=== PATIENT | male | born 1960 | race Caucasian/White ===

== ENCOUNTER 2017-02-17 20:47 | Emergency (ER) | payer MEDICARE, OTHER ==
[~2017-02-17] VITALS: Ht 177.8 cm; Wt 149.7 kg
[2017-02-17 20:47] VITALS: BP 133/72
[~2017-02-17 20:47] MED LIST changes: -ASPI81TA85 PO; -ATOR1TAB18 PO; -CLOP75TA2 PO; -HYDR-3716 PO; -IPRASOL4 INH; -LISI2.5T3 PO; -OMEP40CA2 PO; -VIAG100T PO
[2017-02-19] MEDS ORDERED: VIAG100T PO (10:26)
[2017-02-19] MEDS ORDERED: LISI2.5T3 PO (10:26)
[2017-02-19] MEDS ORDERED: HYDR-3716 PO (10:26)
[2017-02-19] MEDS ORDERED: ASPI81TA85 PO (10:26)
[2017-02-19] MEDS ORDERED: OMEP40CA2 PO (12:08)
[2017-02-19] MEDS ORDERED: CLOP75TA2 PO (12:08)
[2017-02-19] MEDS ORDERED: ATOR1TAB18 PO (12:08)
[2017-02-19] MEDS ORDERED: IPRASOL4 INH (12:09)
== END 2017-02-18 00:06 | disposition left against medical advice (07) ==
LOC: M ED 23:54
DX: R10.10 Upper abdominal pain, unspecified (principal); Z53.21 Procedure and treatment not carried out due to patient leaving prior to being seen by health care provider; K59.00 Constipation, unspecified

== ENCOUNTER → 2017-02-17 | Outpatient (CLI) | payer MEDICARE, OTHER ==
[~2017-02-17] MED LIST: /ATOR40TA; ASPI81TA85 PO; ATEN25TA; ATOR1TAB18 PO; CLOP75TA2 PO; ECOT325T5; HYDR-3716 PO; HYDROCODONE/ACETAMIN; IPRASOL4 INH; LISI2.5T3 PO; OMEP40CA2 PO; PLAV75TA2; PRIL20CA; VIAG100T PO; ZETI10TA
--- NOTE | 2017-02-17 09:31 | REP ---
ABDOMINAL SERIES: Supine and erect views of the abdomen demonstrate no evidence of free intraperitoneal air and no evidence for bowel obstruction. No dilated small bowel loops are seen. Phlebolith is seen in the left pelvis. There are degenerative changes of the spine. There are metallic clips in the right upper quadrant. An accompanying PA view of the chest demonstrates no acute infiltrate. Heart is normal in size and the mediastinal silhouette is unremarkable. IMPRESSION: Negative abdominal series. Signed by Codey Peralta MD 02/17/2017 07:52 P
== END ==
LOC: M ADAMS 08:37
PROVIDERS: ATTEND Physician Assistant
DX: R10.10 Upper abdominal pain, unspecified (principal); K59.00 Constipation, unspecified

== ENCOUNTER 2017-02-19 10:13 | Inpatient (IN) | payer MEDICARE, BC, OTHER ==
[~2017-02-19] VITALS: Ht 177.8 cm; Wt 158.8 kg
[~2017-02-19 10:13] MED LIST changes: +IPRATROPIUM 0.5MG/ALBUTEROL 2.5MG INH SOL UD 3ML (DUONEB)(J7620) NEB SCH
[2017-02-19] MEDS ORDERED: ASPI81TA85 PO (10:26)
[2017-02-19] MEDS ORDERED: HYDR-3716 PO (10:26)
[2017-02-19] MEDS ORDERED: LISI2.5T3 PO (10:26)
[2017-02-19] MEDS ORDERED: VIAG100T PO (10:26)
[2017-02-19] MEDS ORDERED: NS 1,000 ML IV ONE (11:15)
[2017-02-19] MEDS ORDERED: MORPHINE 4 MG/ML 1ML SYRINGE IV ONE ×2 (11:15→12:00)
[2017-02-19] MEDS ORDERED: ONDANSETRON 4MG/2ML VIAL (J2405) IV ONE (11:15)
[2017-02-19 11:35] LABS: BASO % 0.4 % (0.0-1.0); EOS # 0.2 K/mm3 (0.0-0.50); EOS % 2.7 % (0.0-3.0); LARGE UNSTAINED CELL # 0.2 K/mm3 (0.0-0.4); LARGE UNSTAINED CELL % 1.9 % (0.0-4.0); LYMPH # 1.5 K/mm3 (1.5-4.5); LYMPH % 17.6 % (24.0-44.0); MEAN CORPUSCULAR HEMOGLOBIN 30.2 pg (27.0-33.0); MEAN CORPUSCULAR HGB CONC 33.9 g/dl (32.0-36.5); MEAN CORPUSCULAR VOLUME 89.1 fl (80.0-96.0); MONO # 0.7 K/mm3 (0.0-0.8); MONO % 8.4 % (0.0-5.0); NEUTROPHILS # 5.7 K/mm3 (1.8-7.7); NEUTROPHILS % 68.9 % (36.0-66.0); PLATELET COUNT, AUTOMATED 268 k/mm3 (150-450); RED CELL DISTRIBUTION WIDTH 12.7 % (11.5-14.5); WHITE BLOOD COUNT 8.2 K/mm3 (4.0-10.0)
--- NOTE | 2017-02-19 11:40 | REP ---
Clinical: Lower chest and abdominal pain . Comparison: 11/02/2015 . Technique: PA and lateral. Findings: The mediastinum and cardiac silhouette are normal. The lung hamlin are clear and without acute consolidation, effusion, or pneumothorax. The skeletal structures are intact and normal. No free air below the diaphragm. Impression: 1. No acute cardiopulmonary process. Signed by Marcus Salmeron MD 02/19/2017 11:31 A
[2017-02-19 11:55] LABS: ALBUMIN 3.4 GM/DL (3.2-5.2); ALBUMIN/GLOBULIN RATIO 0.94 (1.00-1.93); ALKALINE PHOSPHATASE 79 U/L (45-117); ALT/SGPT 55 U/L (12-78); AMYLASE 75 U/L (25-115); ANION GAP 8 MEQ/L (8-16); AST/SGOT 27 U/L (15-37); BILIRUBIN,DIRECT 0.2 MG/DL (0.0-0.2); BILIRUBIN,TOTAL 0.6 MG/DL (0.2-1.0); BLOOD UREA NITROGEN 11 MG/DL (7-18); CALCIUM LEVEL 9.2 MG/DL (8.5-10.1); CARBON DIOXIDE LEVEL 27 MEQ/L (21-32); CHLORIDE LEVEL 103 MEQ/L (98-107); CREATININE FOR GFR 0.83 MG/DL (0.70-1.30); GLOMERULAR FILTRATION RATE > 60.0 (>56); GLUCOSE, FASTING 86 MG/DL (70-105); POTASSIUM SERUM 3.9 MEQ/L (3.5-5.1); SODIUM LEVEL 138 MEQ/L (136-145)
[2017-02-19 11:59] LABS: INR 1.08
[2017-02-19] MEDS ORDERED: CLOP75TA2 PO (12:08)
[2017-02-19] MEDS ORDERED: ATOR1TAB18 PO (12:08)
[2017-02-19] MEDS ORDERED: OMEP40CA2 PO (12:08)
[2017-02-19] MEDS ORDERED: IPRASOL4 INH (12:09)
[2017-02-19] MEDS ORDERED: NS 1,000 ML IV SCH (12:16)
[2017-02-19] MEDS ORDERED: ALBUTEROL SULFATE 2.5 MG/0.5 ML INH NEB SOLN NEB PRN (12:30)
[2017-02-19] MEDS ORDERED: MORPHINE 4 MG/ML 1ML SYRINGE IV PRN (12:30)
[2017-02-19] MEDS ORDERED: ONDANSETRON 4MG/2ML VIAL (J2405) IV PRN (12:30)
[2017-02-19] MEDS: PANTOPRAZOLE 40MG INJ (PROTONIX) (C9113) IV SCH (13:46)
--- NOTE | 2017-02-19 13:57 | HPE ---
DATE OF ADMISSION: 02/19/2017 PRIMARY CARE PROVIDER: Dr. Garcia. CHIEF COMPLAINT: Abdominal pain for 6 days and inability to tolerate anything by mouth. PAST MEDICAL HISTORY: 1. Coronary artery disease status post stents times two. 2. Hypertension. 3. Hyperlipidemia. 4. Obstructive sleep apnea (TRUDY) on CPAP. 5. Chronic back pain after fall injury. 6. Morbid obesity. 7. Gastroesophageal reflux disease. HISTORY OF PRESENT ILLNESS: This is a 56-year-old male who recently returned from [place] after being down there for 3 months, returned on February 04. He was in his usual state of health but after coming back here and then about 6 days ago, he developed upper abdominal pain. Initially he thought it was some gas or indigestion, tolerated the pain for 2 days at home and then went to Urgent Care. There it was thought that he was constipated and was given some stool softeners and bowel prep to make him go. After that, he has been having diarrhea and he had one episode of vomiting. He came to the emergency room 2 days ago, however, and waited in the registration area for 3-1/2 hours and then he could not sit anymore so then back home and then he went to see his primary care provider yesterday, had lab work done and was given a request for CT scan. He got CT scan done at [facility] this morning and then he was called by his primary care provider to come to the emergency room for abnormally elevated lipase level and abnormal CT scan. CT scan showed strict inflammation around the head of the pancreas and body and possible pancreatitis, and a few mildly enlarged pancreatic lymph nodes. There was no free fluid or free air or fluid collection in the abdomen. There was sigmoid diverticulosis without acute pancreatitis. So the patient was admitted to the hospitalist service for pancreatitis. Patient continues to complain of epigastric and right upper quadrant pain, continues to complain of diarrhea. Denies any nausea or vomiting. Denies any radiation of the pain. Denies any fever or chills. Denies any chest pain, shortness of breath, cough or phlegm. Patient says that he has hardly been able to tolerate a few sips of water for the past 3-4 days. Anything that he takes by mouth worsens the pain. PAST SURGICAL HISTORY: 1. Cholecystectomy. 2. Cardiac stents times two. 3. Back surgery times three consisting of laminectomies. 4. Right inguinal hernia repair times two. 5. Abdominal hernia repair. ALLERGIES: No known allergies. SOCIAL HISTORY: Patient drinks socially. Has never had any problems with alcohol abuse. His last drink was about 2 weeks ago. In [place], he usually drinks a little more than when he is up here. He would usually drink 2-3 drinks in the evening. Smokes about half a pack per day. No history of recreational drug abuse. HOME MEDICATIONS: - lisinopril 2.5 mg daily - aspirin 81 mg daily - clopidogrel 300 mg daily - atorvastatin 80 mg at bedtime - acetaminophen/hydrocodone 7.5/325 one tablet by mouth every 6 hours as needed pain - Viagra 100 mg by mouth as needed - omeprazole 40 mg daily - albuterol ipratropium one solution every 4 hours as needed shortness of breath FAMILY HISTORY: History of coronary artery disease in siblings. REVIEW OF SYSTEMS: All ten point review of systems are negative except for those mentioned in history of present illness. PHYSICAL EXAMINATION: Vital signs: Temperature 97.7, pulse 70, respiratory rate 18, blood pressure 100.56, pulse oximetry 96% on room air. General: Patient awake, alert, oriented times three. Lying down in bed in no acute distress. HEENT: Normocephalic, atraumatic. Moist mucous membranes. Anicteric eyes. Chest: Clear to auscultation. Cardiovascular: S1, S2, regular. No rub, murmur or gallop. Abdomen: Obese, soft, tender to palpation in epigastrium, right upper quadrant and right iliac fossa. Some rebound tenderness present. No guarding or rigidity. Bowel sounds hyperperistaltic. Extremities: No edema. LABORATORY DATA: WBC 8.2, hemoglobin 16, platelet 268. Sodium 138, potassium 3.9, chloride 103, bicarbonate 27, BUN 11, creatinine 0.8, glucose 86, lactic acid 1.3. Liver function tests are normal. Amylase 75, lipase 819. CT scan from outside facility shows diffuse fatty infiltration of liver status post cholecystectomy, strict inflammation around the pancreatic head and body with possibly pancreatitis, few mildly enlarged pancreatic lymph nodes are present. No free fluid, free air or fluid collection in the abdomen or pelvis. Sigmoid diverticulosis without acute diverticulitis. There is no evidence of biliary dilatation. No evidence of hydronephrosis or nephrolithiasis. No evidence of abdominal aortic aneurysm. No bowel wall thickening is seen. EKG shows normal sinus rhythm with rate of 78 and suggestion of old inferior wall myocardial infarction. ASSESSMENT AND PLAN: This is a 56-year-old male admitted for pancreatitis. PLAN: For pancreatitis, we will keep the patient on clear liquid diet, minimal oral medications. Will continue pain control with morphine, IV fluid with dextrose and normal saline. Hyperlipidemia, will hold atorvastatin at present. Hypertension, blood pressure is low normal. Patient probably dehydrated this time. I will hold lisinopril. Obstructive sleep apnea, will continue with CPAP. Coronary artery disease with history of stents, the last one more than 2 years old so will hold Plavix. Will only give aspirin. Deep venous thrombosis (DVT) prophylaxis has been ordered. Gastrointestinal (GI) prophylaxis, will continue with IV pantoprazole. Chronic back pain after back injury in 2002 followed by three back surgeries, will continue with morphine.
[2017-02-19] MEDS: D5W/0.9% SODIUM CHLORIDE 1,000 ML IV SCH (16:23)
[2017-02-19] MEDS: MORPHINE 4 MG/ML 1ML SYRINGE IV PRN ×3 (16:32→21:34)
[2017-02-19] MEDS: ASPIRIN 81 MG ENTERIC TAB PO SCH (21:24)
[2017-02-19] MEDS: ENOXAPARIN 40 MG/0.4 ML SYRINGE (J1650) SC SCH (21:32)
[2017-02-19 22:00] VITALS: BP 122/65
[2017-02-20] MEDS: MORPHINE 4 MG/ML 1ML SYRINGE IV PRN ×3 (03:20→20:02)
[2017-02-20] MEDS: D5W/0.9% SODIUM CHLORIDE 1,000 ML IV SCH ×4 (03:27→20:45)
[2017-02-20 06:00] VITALS: BP 103/55
[2017-02-20 06:49] LABS: BASO % 0.7 % (0.0-1.0); EOS # 0.3 K/mm3 (0.0-0.50); EOS % 5.7 % (0.0-3.0); LARGE UNSTAINED CELL # 0.1 K/mm3 (0.0-0.4); LARGE UNSTAINED CELL % 1.6 % (0.0-4.0); LYMPH # 1.3 K/mm3 (1.5-4.5); LYMPH % 22.3 % (24.0-44.0); MEAN CORPUSCULAR HEMOGLOBIN 29.5 pg (27.0-33.0); MEAN CORPUSCULAR VOLUME 89.3 fl (80.0-96.0); MONO # 0.5 K/mm3 (0.0-0.8); MONO % 8.4 % (0.0-5.0); NEUTROPHILS # 3.3 K/mm3 (1.8-7.7); NEUTROPHILS % 61.3 % (36.0-66.0); PLATELET COUNT, AUTOMATED 240 k/mm3 (150-450); WHITE BLOOD COUNT 5.4 K/mm3 (4.0-10.0)
[2017-02-20 07:08] LABS: ANION GAP 5 MEQ/L (8-16); BLOOD UREA NITROGEN 11 MG/DL (7-18); CARBON DIOXIDE LEVEL 27 MEQ/L (21-32); CHLORIDE LEVEL 107 MEQ/L (98-107); CREATININE FOR GFR 0.88 MG/DL (0.70-1.30); GLOMERULAR FILTRATION RATE > 60.0 (>56); GLUCOSE, FASTING 111 MG/DL (70-105); MAGNESIUM LEVEL 2.3 MG/DL (1.8-2.4); POTASSIUM SERUM 3.7 MEQ/L (3.5-5.1); SODIUM LEVEL 139 MEQ/L (136-145)
[2017-02-20] MEDS: PANTOPRAZOLE 40MG INJ (PROTONIX) (C9113) IV SCH (09:44)
--- NOTE | 2017-02-20 10:11 | ECGEPIP ---
Stationary ECG Study [facility] - ED Test Date: 2017-02-19 Pat Name: MIKE HEATH Department: Room: [place] [address] Gender: M Customs Inspector: JAYLON : 1960 Requested By: Sultana Wallace Order Number: [id number] Reading MD: Angie Rich Measurements Intervals [place] Rate: 78 P: 51 ME: 178 QRS: -21 QRSD: 78 T: 0 QT: 367 QTc: 420 Interpretive Statements SINUS RHYTHM INFERIOR MYOCARDIAL INFARCTION, PROBABLY OLD LOW VOLTAGE LIMB NSTTW ABNORMALITY SIMILAR 07/12/15 Electronically Signed On 02-20-2017 10:10:57 EDT by Angie Rich
[2017-02-20] MEDS ORDERED: MORPHINE 4 MG/ML 1ML SYRINGE IV PRN (12:30)
--- NOTE | 2017-02-20 13:55 | IPNPDOC ---
Text Note Date of Service The patient was seen on 02/20/17. NOTE Subjective: Pt denies CP/SOB/palpitations. Abd pain resolved. No Nausea/ vomiting. Tolerating clear diet. Objective: Vitals: (see below) General: No acute distress, laying comfortably in bed. HEENT: Moist mucous membranes. Neck: No JVD or lymphadenopathy Cardiac: RRR, No murmurs Pulm: Clear to auscultation b/l. No wheezing, rhonchi Abd: NT/ND + BS Ext: No edema or cyanosis Labs (see below) Images: CXR 02/19/17 Impression: 1. No acute cardiopulmonary process. Assessment/Plan 1. Acute pancreatitis - Mild- Inflammatory changes per H&P with no loculation. On IVF. Pain better controlled. Advance diet to full liquid. Abd u/s to r/o gallstones. LFTs wnl. Lipid panel to r/o elevated TG. 2. HTN - BP low normal. ACEi held for now. 3. HLD - on statin 4. TRUDY on CPAP 5. CAD s/p PCI - on ASA plavix, statin. 6. H/o chronic back pain s/p multiple back surgeries - stable. DVT prophy: Enoxaparin VS,Fishbone, I+O VS, Fishbone, I+O Laboratory Tests 02/20/17 06:30 Red Blood Count 4.57, Mean Corpuscular Volume 89.3, Mean Corpuscular Hemoglobin 29.5, Mean Corpuscular Hemoglobin Concent 33.0, Red Cell Distribution Width 13.0 , Neutrophils (%) (Auto) 61.3, Lymphocytes (%) (Auto) 22.3 L, Monocytes (%) ( Auto) 8.4 H, Eosinophils (%) (Auto) 5.7 H, Basophils (%) (Auto) 0.7, Neutrophils # (Auto) 3.3, Lymphocytes # (Auto) 1.3 L, Monocytes # (Auto) 0.5, Eosinophils # (Auto) 0.3, Basophils # (Auto) 0.0, Calcium Level 8.0 L Vital Signs Date Time Temp Pulse Resp B/P (MAP) Pulse Ox O2 Delivery O2 Flow Rate FiO2 02/20/17 09:54 16 02/20/17 09:00 Room Air 02/20/17 06:00 97.7 64 103/55 (62) 93 I&O- Last 24 Hours up to 6 AM 02/20/17 06:00 Intake Total 820 ml Output Total 0 ml Balance 820 ml GERMAN NOLAN MD February 20, 2017 13:55
[2017-02-20] MEDS: CLOPIDOGREL 75 MG TAB PO SCH (18:01)
[2017-02-20] MEDS: ENOXAPARIN 40 MG/0.4 ML SYRINGE (J1650) SC SCH (18:36)
[2017-02-20] MEDS: ASPIRIN 81 MG ENTERIC TAB PO SCH (20:01)
[2017-02-20] MEDS ORDERED: ATORVASTATIN 20 MG TAB PO SCH (21:00)
[2017-02-20 22:00] VITALS: BP 135/75
[2017-02-21] MEDS: D5W/0.9% SODIUM CHLORIDE 1,000 ML IV SCH ×2 (01:10→05:04)
[2017-02-21] MEDS: MORPHINE 4 MG/ML 1ML SYRINGE IV PRN (04:11)
[2017-02-21 06:00] VITALS: BP 120/59
[2017-02-21 06:53] LABS: BASO % 0.9 % (0.0-1.0); EOS # 0.3 K/mm3 (0.0-0.50); EOS % 5.4 % (0.0-3.0); LARGE UNSTAINED CELL # 0.1 K/mm3 (0.0-0.4); LARGE UNSTAINED CELL % 1.8 % (0.0-4.0); LYMPH # 1.5 K/mm3 (1.5-4.5); LYMPH % 32.2 % (24.0-44.0); MEAN CORPUSCULAR HEMOGLOBIN 29.6 pg (27.0-33.0); MEAN CORPUSCULAR HGB CONC 32.6 g/dl (32.0-36.5); MEAN CORPUSCULAR VOLUME 90.9 fl (80.0-96.0); MONO # 0.3 K/mm3 (0.0-0.8); MONO % 7.2 % (0.0-5.0); NEUTROPHILS # 2.5 K/mm3 (1.8-7.7); NEUTROPHILS % 52.5 % (36.0-66.0); PLATELET COUNT, AUTOMATED 229 k/mm3 (150-450); RED CELL DISTRIBUTION WIDTH 12.8 % (11.5-14.5); WHITE BLOOD COUNT 4.7 K/mm3 (4.0-10.0)
[2017-02-21 07:12] LABS: ANION GAP 4 MEQ/L (8-16); BLOOD UREA NITROGEN 6 MG/DL (7-18); CALCIUM LEVEL 8.3 MG/DL (8.5-10.1); CARBON DIOXIDE LEVEL 28 MEQ/L (21-32); CHLORIDE LEVEL 110 MEQ/L (98-107); CHOLESTEROL LEVEL 126 MG/DL (<200); GLOMERULAR FILTRATION RATE > 60.0 (>56); GLUCOSE, FASTING 113 MG/DL (70-105); POTASSIUM SERUM 3.7 MEQ/L (3.5-5.1); SODIUM LEVEL 142 MEQ/L (136-145); TRIGLYCERIDES LEVEL 99 MG/DL (<150)
--- NOTE | 2017-02-21 07:46 | REP ---
Clinical: Abdominal pain. Pancreatitis. Technique: Real time ivey scale ultrasound examination using curved array transducer. Findings: The patient is status post cholecystectomy. Evaluation is limited due to technical factors and body habitus. No obvious biliary ductal dilatation is appreciated and the common bile duct measures 6.9 mm diameter. The liver demonstrates diffuse fatty infiltration without focal hepatic lesion identified. The pancreas is incompletely evaluated due to overlying bowel gas, but visualized portions appear normal. The right kidney is normal in reniform shape without hydronephrosis and measures 14.1 x 7.1 x 6.4 cm. No ascites. Impression: Fatty infiltration to the liver. Status post cholecystectomy. No obvious acute pathology by ultrasound otherwise noted. Signed by Marcus Salmeron MD 02/21/2017 07:38 A
[2017-02-21] MEDS ORDERED: PANTOPRAZOLE 40MG TAB (PROTONIX) PO SCH (09:00)
[2017-02-21] MEDS: CLOPIDOGREL 75 MG TAB PO SCH (09:12)
[2017-02-21] MEDS ORDERED: PERCOCET 5MG/325MG TAB PO PRN (09:30)
--- NOTE | 2017-02-21 14:36 | DS.PDOC ---
Discharge Summary General Date of Admission February 19, 2017 at 12:32 Attending Physician: GERMAN NOLAN MD Discharge Summary PROCEDURES PERFORMED DURING STAY: None. ADMITTING/DISCHARGE DIAGNOSES: 1. Acute Pancreatitis 2. Hypertension. 3. Hyperlipidemia. 4. Obstructive sleep apnea (TRUDY) on CPAP. 5. Chronic back pain after fall injury. 6. Morbid obesity. 7. Gastroesophageal reflux disease. 8. Coronary artery disease status post stents times two. COMPLICATIONS/CHIEF COMPLAINT: Pancreatitis. HISTORY OF PRESENT ILLNESS/HOSPITAL COURSE: This is a 48-year-old male past history of CAD status post PCI, hypertension, hyperlipidemia, TRUDY presents complaining of abdominal pain for 6 days prior to admission. Patient is unable to tolerate oral diet. Initially presented to the ED and was impatient, and left prior to being seen. Seen by his primary doctor and referred to the ED after having a CAT scan of the abdomen and pelvis notable for pancreatitis as well as elevated lipase. Patient was initially kept nothing by mouth, started on IV fluids, and pain had been controlled with IV medications. The patient's had his diet advanced and once his pain subsided. There is no clear cause of the patient's abdominal pain however patient states that he was drinking more than usual the beginning of February as he was out with his friends. Patient tolerated therapy well, developing a completely resolved, and patient is tolerating a regular diet and will be discharged home. DISCHARGE MEDICATIONS: Please see below. ALLERGIES: Please see below. PHYSICAL EXAMINATION ON DISCHARGE: Vitals: (see below) General: No acute distress, laying comfortably in bed. HEENT: Moist mucous membranes. Neck: No JVD or lymphadenopathy Cardiac: RRR, No murmurs Pulm: Clear to auscultation b/l. No wheezing, rhonchi Abd: NT/ND + BS Ext: No edema or cyanosis LABORATORY DATA: Please see below. IMAGING: Abd u/s 02/20/17 Impression: Fatty infiltration to the liver. Status post cholecystectomy. No obvious acute pathology by ultrasound otherwise noted. CXR 02/20/17 Impression: 1. No acute cardiopulmonary process. PROGNOSIS: Good ACTIVITY: As tolerated. DIET: Low fat DISCHARGE PLAN/DISPOSITION: 01 Home, Self-Care. DISCHARGE INSTRUCTIONS: 1. F/u with PCP in 1-2 weeks. Avoid alcohol. DISCHARGE CONDITION: Stable. TIME SPENT ON DISCHARGE: Greater than 30 minutes. Vital Signs/I&Os Vital Signs Date Time Temp Pulse Resp B/P (MAP) Pulse Ox O2 Delivery O2 Flow Rate FiO2 02/21/17 08:00 Room Air 02/21/17 06:00 97.1 66 18 120/59 (79) 93 I&O- Last 24 Hours up to 6 AM 02/21/17 05:59 Intake Total 1884 ml Balance 1884 ml Laboratory Data Labs 24H Laboratory Tests 2 02/21/17 06:22: White Blood Count 4.7, Red Blood Count 4.53, Hemoglobin 13.4L, Hematocrit 41.2L , Mean Corpuscular Volume 90.9, Mean Corpuscular Hemoglobin 29.6, Mean Corpuscular Hemoglobin Concent 32.6, Red Cell Distribution Width 12.8, Platelet Count 229, Neutrophils (%) (Auto) 52.5, Lymphocytes (%) (Auto) 32.2, Monocytes ( %) (Auto) 7.2H, Eosinophils (%) (Auto) 5.4H, Basophils (%) (Auto) 0.9, Neutrophils # (Auto) 2.5, Lymphocytes # (Auto) 1.5, Monocytes # (Auto) 0.3, Eosinophils # (Auto) 0.3, Basophils # (Auto) 0.0, Large Unclassified Cells % 1.8 , Large Unclassified Cells # 0.1, Anion Gap 4L, Glomerular Filtration Rate > 60.0, Calcium Level 8.3L, Magnesium Level 2.0, Triglycerides Level 99, LDL Cholesterol 81.2, Total Cholesterol 126, Non-HDL Cholesterol (LDL + VLDL) 101, Total HDL Cholesterol 25L, Cholesterol/HDL Ratio 5.040H, Lipase 322 CBC/BMP Laboratory Tests 02/21/17 06:22 Red Blood Count 4.53, Mean Corpuscular Volume 90.9, Mean Corpuscular Hemoglobin 29.6, Mean Corpuscular Hemoglobin Concent 32.6, Red Cell Distribution Width 12.8 , Neutrophils (%) (Auto) 52.5, Lymphocytes (%) (Auto) 32.2, Monocytes (%) (Auto ) 7.2 H, Eosinophils (%) (Auto) 5.4 H, Basophils (%) (Auto) 0.9, Neutrophils # ( Auto) 2.5, Lymphocytes # (Auto) 1.5, Monocytes # (Auto) 0.3, Eosinophils # (Auto ) 0.3, Basophils # (Auto) 0.0 Microbiology Microbiology 02/19/17 Blood Culture - Preliminary, Resulted No Growth after 48 hours. All Specime... 02/19/17 Blood Culture - Preliminary, Resulted No Growth after 48 hours. All Specime... 02/19/17 Urine Culture - Final, Complete Discharge Medications Scheduled Aspirin (Aspir-81) 81 Mg Tab, 81 MG PO QHS, (Reported) Atorvastatin Calcium (Atorvastatin Calcium) 80 Mg Tab, 80 MG PO QHS, (Reported) Clopidogrel Bisulfate (Clopidogrel) 75 Mg Tab, 75 MG PO DAILY, (Reported) Omeprazole (Omeprazole) 40 Mg Cap, 40 MG PO DAILY, (Reported) Scheduled PRN Acetaminophen/Hydrocodone (Hydrocodone/Acetaminophen 7.5-325 mg) 1 Tab Tab, 1 TAB PO Q6H PRN for PAIN, (Reported) Albuterol/Ipratropium (Ipratropium Cyril/Albut 0.5-2.5 (3) mg/3Ml) 1 Isela Isela, 1 ISELA INH Q4H PRN for SHORTNESS OF BREATH, (Reported) Sildenafil Citrate (Viagra) 100 Mg Tab, 100 MG PO PRN PRN for ERECTILE DYSFUNCTION, (Reported) Allergies Coded Allergies: No Known Allergies (Verified Allergy, Unknown, 06/08/09) GERMAN NOLAN MD February 21, 2017 14:36
== END 2017-02-21 13:10 | disposition home or self-care (01) | DRG 439 ==
LOC: M ED 11:49 → M ED INP 12:32 → M MS5PR 18:10
PROVIDERS: ADMIT Internal Medicine Nephrology; ATTEND Internal Medicine
DX: K85.90 Acute pancreatitis without necrosis or infection, unspecified (principal); Z68.42 Body mass index [BMI] 45.0-49.9, adult; E66.01 Morbid (severe) obesity due to excess calories; I10 Essential (primary) hypertension; E78.5 Hyperlipidemia, unspecified; G47.33 Obstructive sleep apnea (adult) (pediatric); K21.9 Gastro-esophageal reflux disease without esophagitis; F17.210 Nicotine dependence, cigarettes, uncomplicated; M54.9 Dorsalgia, unspecified; I25.10 Atherosclerotic heart disease of native coronary artery without angina pectoris; Z95.9 Presence of cardiac and vascular implant and graft, unspecified; Z79.82 Long term (current) use of aspirin; Z79.899 Other long term (current) drug therapy; Z90.49 Acquired absence of other specified parts of digestive tract; Z99.89 Dependence on other enabling machines and devices; Z82.49 Family history of ischemic heart disease and other diseases of the circulatory system

== ENCOUNTER → 2017-04-03 | Outpatient (REF) | payer MEDICARE, BC, OTHER ==
[~2017-04-03] MED LIST changes: +ASPI81TA85 PO; +ATOR1TAB18 PO; +CLOP75TA2 PO; +HYDR-3716 PO; +IPRASOL4 INH; -IPRATROPIUM 0.5MG/ALBUTEROL 2.5MG INH SOL UD 3ML (DUONEB)(J7620) NEB SCH; +LISI2.5T3 PO; +OMEP40CA2 PO; +VIAG100T PO
== END ==
LOC: M LAB REF 13:23
PROVIDERS: ATTEND Nurse Practitioner Family
DX: L08.9 Local infection of the skin and subcutaneous tissue, unspecified (principal)

== ENCOUNTER 2018-07-04 20:44 | Emergency (ER) | payer MEDICARE, BC, OTHER ==
[2018-07-04] MEDS: NS 1,000 ML IV (22:25)
[2018-07-04 22:28] LABS: KETONE, URINE AUTO RFX NEGATIVE (NEGATIVE); LEUKOCYTE ESTERASE UR AUTO RFX NEGATIVE (NEGATIVE); NITRITE, URINE AUTO RFX NEGATIVE (NEGATIVE); RBC, URINE AUTO RFX 1 /HPF (0-3); SPECIFIC GRAVITY UR AUTO RFX 1.014 (1.002-1.035); SQUAM EPITHELIAL CELL UR AURFX 0 /HPF (0-6); WBC, URINE AUTO RFX 0 /HPF (0-3)
[2018-07-04 22:47] LABS: BASO # 0.1 10^3/uL (0.0-0.2); BASO % 0.5 % (0.0-1.0); EOS # 0.3 10^3/uL (0.0-0.50); EOS % 2.4 % (0.0-3.0); HEMATOCRIT 47.2 % (42.0-52.0); HEMOGLOBIN 15.6 g/dl (13.5-17.5); IMMATURE GRANULOCYTE % 0.4 % (0-3.0); LYMPH # 1.9 10^3/uL (1.5-4.5); LYMPH % 15.9 % (24.0-44.0); MEAN CORPUSCULAR HEMOGLOBIN 28.3 pg (27.0-33.0); MEAN CORPUSCULAR HGB CONC 33.1 g/dl (32.0-36.5); MEAN CORPUSCULAR VOLUME 85.7 fl (80.0-96.0); MONO # 1.3 10^3/uL (0.0-0.8); MONO % 10.7 % (0.0-5.0); NEUTROPHILS # 8.4 10^3/uL (1.8-7.7); NEUTROPHILS % 70.1 % (36.0-66.0); PLATELET COUNT, AUTOMATED 237 10^3/uL (150-450); RED BLOOD COUNT 5.51 10^6/uL (4.30-6.10); RED CELL DISTRIBUTION WIDTH 13.5 % (11.5-14.5)
[2018-07-04 22:56] LABS: INR 0.98; PROTHROMBIN TIME 13.1 SECONDS (12.1-14.4)
[2018-07-04 23:13] LABS: LACTIC ACID SEPSIS PROTOCOL 1.3 MMOL/L (0.4-2.0)
[2018-07-05] MEDS: MORPHINE 4 MG/ML 1ML VIAL/SYRINGE (J2270) IV (00:30)
[2018-07-05] MEDS: ONDANSETRON 4MG/2ML VIAL (J2405) IV (00:30)
[2018-07-05 00:32] LABS: ALBUMIN 3.2 GM/DL (3.2-5.2); ALBUMIN/GLOBULIN RATIO 0.89 (1.00-1.93); ALKALINE PHOSPHATASE 80 U/L (45-117); ALT/SGPT 32 U/L (12-78); AMYLASE 43 U/L (25-115); ANION GAP 9 MEQ/L (8-16); AST/SGOT 31 U/L (7-37); BILIRUBIN,DIRECT < 0.1 MG/DL (0.0-0.2); BILIRUBIN,TOTAL 0.5 MG/DL (0.2-1.0); BLOOD UREA NITROGEN 12 MG/DL (7-18); CALCIUM LEVEL 8.4 MG/DL (8.8-10.2); CARBON DIOXIDE LEVEL 23 MEQ/L (21-32); CHLORIDE LEVEL 108 MEQ/L (98-107); CREATININE FOR GFR 0.77 MG/DL (0.70-1.30); GLOMERULAR FILTRATION RATE > 60.0 (>49); GLUCOSE, FASTING 86 MG/DL (70-100); LIPASE 140 U/L (73-393); POTASSIUM SERUM 5.3 MEQ/L (3.5-5.1); SODIUM LEVEL 140 MEQ/L (136-145); TOTAL PROTEIN 6.8 GM/DL (6.4-8.2)
[2018-07-05] MEDS ORDERED: ISOVUE-370 76% 100ML VIAL (Q9967) As Ordered (00:35)
[2018-07-05] MEDS: CIPROFLOXACIN 500 MG TAB PO (02:15)
[2018-07-05] MEDS: metroNIDAZOLE (FLAGYL) 500 MG TAB PO (02:15)
== END 2018-07-05 02:25 | disposition home or self-care (01) ==
LOC: M ED 07-05 02:25
DX: K57.32 Diverticulitis of large intestine without perforation or abscess without bleeding (principal); I10 Essential (primary) hypertension; K21.9 Gastro-esophageal reflux disease without esophagitis; E78.70 Disorder of bile acid and cholesterol metabolism, unspecified; M54.5 Low back pain; G89.29 Other chronic pain; Z87.19 Personal history of other diseases of the digestive system; Z87.891 Personal history of nicotine dependence; Z90.49 Acquired absence of other specified parts of digestive tract; Z79.899 Other long term (current) drug therapy; Z95.5 Presence of coronary angioplasty implant and graft; Z98.890 Other specified postprocedural states
CPT/HCPCS: J2270

== ENCOUNTER → 2019-02-04 | Outpatient (CLI) | payer MEDICARE, BC, OTHER ==
[~2019-02-04] MED LIST changes: -/ATOR40TA; -ATOR1TAB18 PO; +ATOR80TA59 PO; +CIPR-249 PO; +DOXY100C37; +FLAG500T PO; +IPRA0.00 INH; -IPRASOL4 INH; +LIPI1TAB2; +LISI-1046; +LISI-1046 PO; -LISI2.5T3 PO; +ZOFR4TAB14 PO
[2019-02-04 12:56] LABS: HEMATOCRIT 47.6 % (42.0-52.0); HEMOGLOBIN 15.4 g/dl (13.5-17.5); MEAN CORPUSCULAR HEMOGLOBIN 28.4 pg (27.0-33.0); MEAN CORPUSCULAR HGB CONC 32.4 g/dl (32.0-36.5); MEAN CORPUSCULAR VOLUME 87.8 fl (80.0-96.0); PLATELET COUNT, AUTOMATED 200 10^3/uL (150-450); RED BLOOD COUNT 5.42 10^6/uL (4.30-6.10); WHITE BLOOD COUNT 6.1 10^3/uL (4.0-10.0)
== END ==
LOC: M WUC 10:25
PROVIDERS: ATTEND Physician Assistant
DX: E78.5 Hyperlipidemia, unspecified (principal)

== ENCOUNTER → 2019-02-11 | Outpatient (REF) | payer MEDICARE, BC, OTHER ==
[2019-02-11 13:31] LABS: ALBUMIN 3.6 GM/DL (3.2-5.2); ALT/SGPT 45 U/L (12-78); BILIRUBIN,TOTAL 0.3 MG/DL (0.2-1.0); BLOOD UREA NITROGEN 16 MG/DL (7-18); CALCIUM LEVEL 9.2 MG/DL (8.8-10.2); CARBON DIOXIDE LEVEL 26 MEQ/L (21-32); CHLORIDE LEVEL 108 MEQ/L (98-107); CHOLESTEROL LEVEL 172 MG/DL (<200); CREATININE FOR GFR 0.88 MG/DL (0.70-1.30); GLOMERULAR FILTRATION RATE > 60.0 (>49); GLUCOSE, FASTING 93 MG/DL (70-100); HDL CHOLESTEROL 50 MG/DL (>40); LDL CHOLESTEROL 104 MG/DL (<100); NON-HDL-C 122 MG/DL; POTASSIUM SERUM 4.8 MEQ/L (3.5-5.1); SODIUM LEVEL 140 MEQ/L (136-145); TOTAL PROTEIN 6.7 GM/DL (6.4-8.2); TRIGLYCERIDES LEVEL 89 MG/DL (<150)
== END ==
LOC: M WUC 12:17
PROVIDERS: ATTEND Physician Assistant
DX: E78.5 Hyperlipidemia, unspecified (principal)

== ENCOUNTER 2019-04-14 07:55 | Day surgery (SDC) | payer MEDICARE, BC, OTHER ==
[~2019-04-14] VITALS: Ht 175.3 cm; Wt 156.0 kg
[~2019-04-14 07:55] MED LIST changes: -DOXY100C37; +DOXY100C37 PO; -LISI-1046; +NS 1,000 ML IV ONE
[2019-04-14] MEDS ORDERED: LIDOCAINE 2% INJ 100 MG/5 ML SDV (FOR ANES.) As Ordered ONE (08:25)
[2019-04-14] MEDS ORDERED: PROPOFOL 200 MG/20 ML VIAL As Ordered ONE (08:25)
--- NOTE | 2019-04-14 09:38 | ROOR ---
Patient Name: aHnk Alford Procedure Date: 04/14/2019 9:14 AM Date of : 1960 Age: 59 Room: [facility] Gender: Male Note Status: Finalized Procedure: Total Colonoscopy to Cecum Indications: High risk colon cancer surveillance: Personal history of colonic polyps, Last colonoscopy: 2014 Providers: Alfredo Sifuentes MD Referring MD: LJ YOUNG DO Requesting Provider: Medicines: Monitored Anesthesia Care Complications: No immediate complications. Procedure: Pre-Anesthesia Assessment: - The heart rate, respiratory rate, oxygen saturations, blood pressure, adequacy of pulmonary ventilation, and response to care were monitored throughout the procedure. The Colonoscope was introduced through the anus and advanced to the cecum, identified by appendiceal orifice and ileocecal valve. The colonoscopy was performed without difficulty. The patient tolerated the procedure well. The quality of the bowel preparation was excellent. Findings: The perianal and digital rectal examinations were normal. Non-bleeding internal hemorrhoids were found during retroflexion. The hemorrhoids were Grade I (internal hemorrhoids that do not prolapse). Scattered small-mouthed diverticula were found in the recto-sigmoid colon, sigmoid colon and descending colon. The exam was otherwise without abnormality on direct and retroflexion views. Impression: - Non-bleeding internal hemorrhoids. - Diverticulosis in the recto-sigmoid colon, in the sigmoid colon and in the descending colon. - The examination was otherwise normal on direct and retroflexion views. - No specimens collected. - The exam was otherwise normal to the cecum. Recommendation: - Patient has a contact number available for emergencies. The signs and symptoms of potential delayed complications were discussed with the patient. Return to normal activities tomorrow. Written discharge instructions were provided to the patient. - High fiber diet. - Discharge patient to home. - Continue present medications. - Repeat colonoscopy in 5 years for surveillance. - Return to referring physician. - The findings and recommendations were discussed with the patient's family. Alfredo Sifuentes MD Alfredo Sifuentes MD 04/14/2019 9:38:09 AM Electronically signed by Alfredo Sifuentes MD Number of Addenda: 0 Note Initiated On: 04/14/2019 9:14 AM Estimated Blood Loss: Estimated blood loss: none.
[2019-04-14 10:00] VITALS: BP 148/74
== END 2019-04-14 10:05 | disposition home or self-care (01) ==
LOC: M OPP 07:55
PROVIDERS: ATTEND Internal Medicine Gastroenterology
DX: Z12.11 Encounter for screening for malignant neoplasm of colon (principal); Z86.010 Personal history of colon polyps; K64.0 First degree hemorrhoids; K57.30 Diverticulosis of large intestine without perforation or abscess without bleeding

== ENCOUNTER → 2019-07-17 | Outpatient (CLI) | payer MEDICARE, BC, OTHER ==
[~2019-07-17] MED LIST changes: -NS 1,000 ML IV ONE; -OMEP40CA2 PO; +OMEP40CA97 PO
--- NOTE | 2019-07-17 13:05 | REP ---
Right shoulder: Three views. History: Pain. Comparison is made with a chest x-ray from February 19, 2017. Findings: There is fragmented spurring of the distal clavicle at the AC joint. Mild spurring at the acromion process is seen as well. These findings are not new but are somewhat more pronounced than on the comparison chest x-ray. Normal alignment of the glenohumeral and acromioclavicular joints is seen. Periarticular soft tissues are unremarkable. Impression: Progressive osteoarthritis of the AC joint. Otherwise negative right shoulder radiographs. Electronically Signed by Rolf Mares MD 07/17/2019 01:09 P
--- NOTE | 2019-07-17 13:06 | REP ---
Cervical spine series: Limited study three views. History: Pain. Findings: Lateral and swimmers lateral views are presented. These show normal alignment and preserved vertebral body heights. There is degenerative disc disease at each level from C3-4 through C6-7. Anterior osteophyte formation is seen most pronounced at C4-5 and C5-6. Prevertebral soft tissues are not widened. AP view shows minimal facet hypertrophy in the central cervical spine. Impression: Degenerative spondylosis changes. Straightening. Electronically Signed by Rolf Mares MD 07/17/2019 01:09 P
== END ==
LOC: M WUC 10:37
PROVIDERS: ATTEND Nurse Practitioner Family
DX: M25.78 Osteophyte, vertebrae (principal); M50.320 Other cervical disc degeneration, mid-cervical region, unspecified level; M19.111 Post-traumatic osteoarthritis, right shoulder

== ENCOUNTER → 2020-04-02 | Outpatient (CLI) | payer MEDICARE, OTHER ==
[~2020-04-02] MED LIST changes: -LISI-1046 PO; +LISI2.5T2 PO
[2020-04-02 12:46] LABS: APPEARANCE, URINE CLEAR (CLEAR); BACTERIA, URINE AUTO NEGATIVE (NEGATIVE); BILIRUBIN, URINE AUTO NEGATIVE (NEGATIVE); BLOOD, URINE BLOOD NEGATIVE (NEGATIVE); COLOR, URINE YELLOW (YELLOW); GLUCOSE, URINE (UA) AUTO NEGATIVE (NEGATIVE); KETONE, URINE AUTO TRACE mg/dL (NEGATIVE); LEUKOCYTE ESTERASE, URINE AUTO NEGATIVE (NEGATIVE); MUCUS, URINE SMALL (NEGATIVE); NITRITE, URINE AUTO NEGATIVE (NEGATIVE); PROTEIN, URINE AUTO NEGATIVE (NEGATIVE); RBC, URINE AUTO 0 /HPF (0-3); SPECIFIC GRAVITY URINE AUTO 1.017 (1.002-1.035); SQUAMOUS EPITHELIAL CELL UR AU 0 /HPF (0-6); UROBILINOGEN, URINE AUTO 0.2 mg/dL (0.0-2.0); WBC, URINE AUTO 0 /HPF (0-3)
== END ==
LOC: M WUC 10:45
PROVIDERS: ATTEND Nurse Practitioner Women's Health
DX: N39.0 Urinary tract infection, site not specified (principal)

== ENCOUNTER → 2020-04-04 | Outpatient (REF) | payer MEDICARE, OTHER | LOC: M LABSMT 14:03 → M SFHCADAM 14:03 | PROVIDERS: ATTEND Nurse Practitioner Women's Health | DX: R97.20 Elevated prostate specific antigen [PSA] (principal) ==

== ENCOUNTER → 2020-10-20 | Outpatient (CLI) | payer MEDICARE, OTHER ==
[~2020-10-20] MED LIST changes: -ASPI81TA85 PO; +ASPI81TA86 PO
--- NOTE | 2020-10-20 15:37 | REP ---
INDICATION: SOB COMPARISON: 02/24/2020. TECHNIQUE: PA/Lateral FINDINGS: Lungs: Clear, no infiltrate. Heart: Normal in size. Mediastinum: Mediastinal silhouette unremarkable. Pleural angles: Unremarkable.. Bones and soft tissues: There is degenerative changes of the spine without compression deformity. IMPRESSION: No acute pulmonary disease. <Electronically signed by Codey Peralta > 10/20/20 [id number]
== END ==
LOC: M WUC 09:51
PROVIDERS: ATTEND Physician Assistant
DX: R06.02 Shortness of breath (principal)

== ENCOUNTER → 2021-02-13 | Outpatient (CLI) | payer MEDICARE, BC, OTHER ==
--- NOTE | 2021-02-13 16:56 | REP ---
INDICATION: PAIN. COMPARISON: None TECHNIQUE: AP frog-lateral views FINDINGS: The hip joint space is symmetric and relatively well maintained. There is no acute fracture or destructive osseous lesion. IMPRESSION: Within normal limits <Electronically signed by Nader Cornelius > 02/13/21 [id number]
--- NOTE | 2021-02-13 17:56 | REP ---
INDICATION: PAIN. COMPARISON: None. TECHNIQUE: Five views lumbosacral spine. FINDINGS: There is no compression fracture or malalignment. There is normal lumbar lordosis. There is mild diffuse spurring. There is mild disc space narrowing and subchondral sclerosis at L3-4, L4-5 and L5-S1. There is diffuse sclerosis and spurring at the posterior facet joints. The posterior elements are intact. IMPRESSION: No fracture or dislocation. Degenerative changes as above. <Electronically signed by Codey Peralta > 02/13/21 [id number]
== END ==
LOC: M WUC 14:17
PROVIDERS: ATTEND Physician Assistant
DX: M25.551 Pain in right hip (principal); M25.78 Osteophyte, vertebrae

== ENCOUNTER → 2021-04-26 | Outpatient (CLI) | payer MEDICARE, BC, OTHER ==
[~2021-04-26] MED LIST changes: -DOXY100C37 PO; +DOXY1CAP62 PO; +OMEP40CA4 PO; -OMEP40CA97 PO
== END ==
LOC: M LAB 10:06
PROVIDERS: ATTEND Physician Assistant
DX: R06.02 Shortness of breath (principal)

== ENCOUNTER → 2021-04-26 | Outpatient (CLI) | payer MEDICARE, BC, OTHER ==
--- NOTE | 2021-04-26 11:26 | REP ---
INDICATION: RT HAND EDEMA COMPARISON: None. TECHNIQUE: Real time compression and duplex Doppler evaluation of the Right upper extremity deep venous system is performed. FINDINGS: The Right subclavian, jugular, axillary, brachial, basilic and cephalic veins are fully compressible where accessible with transducer pressure, and demonstrate no intraluminal thrombus and normal venous waveforms. There is no evidence of deep venous thrombosis.The Left subclavian vein is fully compressible where accessible with transducer pressure, and demonstrates no intraluminal thrombus and normal venous waveforms. IMPRESSION: No evidence of deep venous thrombosis of the Right upper extremity deep vein system. <Electronically signed by Codey Peralta > 04/26/21 [id number]
== END ==
LOC: M RAD 10:08
PROVIDERS: ATTEND Physician Assistant
DX: R60.0 Localized edema (principal); R06.02 Shortness of breath

== ENCOUNTER → 2021-06-06 | Outpatient (REF) | payer OTHER, MEDICARE, BC ==
[~2021-06-06] MED LIST changes: +DOXY-443 PO; -DOXY1CAP62 PO; -LISI2.5T2 PO; +LISI2.5T9 PO
[2021-06-06 13:03] LABS: PLATELET COUNT, AUTOMATED 225 10^3/uL (150-450)
[2021-06-06 13:14] LABS: INR 1.02; PROTHROMBIN TIME 13.8 SECONDS (12.7-14.5)
[2021-06-06 13:15] LABS: PARTIAL THROMBOPLASTIN TIME 27.9 SECONDS (25.9-37.0)
== END ==
LOC: M LABDRWAD 12:23
PROVIDERS: ATTEND Physical Medicine & Rehabilitation
DX: M51.16 Intervertebral disc disorders with radiculopathy, lumbar region (principal)

== ENCOUNTER → 2021-08-07 | Outpatient (CLI) | payer MEDICARE, BC, OTHER ==
--- NOTE | 2021-08-07 17:01 | REP ---
INDICATION: ABNORMAL FINDING OF LUNG FIELD. COMPARISON: CT without 02/28/2021 at [facility]. TECHNIQUE: Noncontrast images of the chest with coronal and sagittal reconstructions are reviewed. FINDINGS: On image 58 the left lower lobe there is a perifissural nodule abutting the major fissure posteriorly and measuring 5.3 mm, unchanged. Some dependent atelectatic changes seen at posteriorly in the superior segment of the bilateral lower lobes and to a lesser extent centrally in the lower lobes and the subpleural paraspinal region. There is no similar finding in the deep sulcus on either side I do not see a parenchymal mass. There is prominent epicardial fat and fat extending into to the major fissure on the left at its base. No pleural effusion or acute infiltrate. No calcified pleural plaque or pleural based mass. Heart is not enlarged there is no pericardial thickening or effusion. There are some coronary artery calcifications evident. There is no mediastinal, hilar, axillary or supraclavicular pathologic sized adenopathy. Largest node is in axillary node on the left at 9.6 mm in short axis, normal by CT size criteria. There is fatty infiltration of right pectoralis major muscle as before. The rest of the chest musculature remains symmetric. The thoracic aorta shows no aneurysm or dissection. Bone windows show thoracic spondylosis with marginal osteophytes but no compression fracture or destructive lesions. Sternum, manubrium, medial clavicles, visible portions of scapulae, glenohumeral joints and ribs were all intact. That portion of upper abdomen included shows slightly prominent left hepatic lobe but no gross hepatomegaly. Gallbladder surgically absent. Spleen unremarkable. No hiatal hernia. Stomach intact. No adrenal mass or nodules. The gallbladder is surgically absent and visualized pancreas unremarkable. Bowel loops unremarkable IMPRESSION: Again noted is a 5.3 mm Perifissural nodule in the left lower lobe abutting the posterior margin of the major fissure and unchanged over the past 6 months. For patients at high risk to develop malignancy, a new nodule this size can be re-scanned in another 6 months and again 1 year from that using criteria from the [employer]ner [employer]. No other significant or acute finding. <Electronically signed by Aj Alanis > 08/07/21 [id number]
== END ==
LOC: M PLAIMG 12:47
PROVIDERS: ATTEND Physician Assistant
DX: R91.8 Other nonspecific abnormal finding of lung field (principal)

== ENCOUNTER → 2021-08-09 | Outpatient (CLI) | payer OTHER | LOC: M PAIN 08:45 | PROVIDERS: ATTEND Nurse Practitioner Family | DX: M96.1 Postlaminectomy syndrome, not elsewhere classified (principal); K21.9 Gastro-esophageal reflux disease without esophagitis; Z87.891 Personal history of nicotine dependence; E66.01 Morbid (severe) obesity due to excess calories; Z68.43 Body mass index [BMI] 50.0-59.9, adult; Z79.82 Long term (current) use of aspirin; Z79.899 Other long term (current) drug therapy ==

== ENCOUNTER → 2022-02-05 | Outpatient (CLI) | payer MEDICARE, BC, OTHER ==
[~2022-02-05] MED LIST changes: +GASTROGRAFIN SOLUTION 30ML (Q9963) As Ordered ONE; +ISOVUE-370 76% 100ML VIAL As Ordered ONE
[2022-02-05 10:25] LABS: BASO % 0.5 % (0.0-1.0); EOS # 0.2 10^3/uL (0.0-0.5); EOS % 3.1 % (0.0-3.0); HEMATOCRIT 50.4 % (42.0-52.0); HEMOGLOBIN 16.3 g/dl (13.5-17.5); LYMPH # 1.3 10^3/uL (1.5-5.0); LYMPH % 16.3 % (24.0-44.0); MEAN CORPUSCULAR HEMOGLOBIN 28.5 pg (27.0-33.0); MEAN CORPUSCULAR HGB CONC 32.3 g/dl (32.0-36.5); MEAN CORPUSCULAR VOLUME 88.1 fl (80.0-96.0); MONO % 12.5 % (2.0-8.0); NEUTROPHILS # 5.2 10^3/uL (1.5-8.5); NEUTROPHILS % 67.2 % (36.0-66.0); PLATELET COUNT, AUTOMATED 214 10^3/uL (150-450); RED BLOOD COUNT 5.72 10^6/uL (4.30-6.10); WHITE BLOOD COUNT 7.7 10^3/uL (4.0-10.0)
[2022-02-05 10:55] LABS: ALBUMIN 3.6 GM/DL (3.2-5.2); ALT/SGPT 79 U/L (12-78); BILIRUBIN,TOTAL 0.7 MG/DL (0.2-1.0); BLOOD UREA NITROGEN 21 MG/DL (7-18); CALCIUM LEVEL 9.4 MG/DL (8.8-10.2); CARBON DIOXIDE LEVEL 26 MEQ/L (21-32); CHLORIDE LEVEL 105 MEQ/L (98-107); CREATININE FOR GFR 1.15 MG/DL (0.70-1.30); GLOMERULAR FILTRATION RATE > 60.0 (>49); GLUCOSE, FASTING 99 MG/DL (70-100); LIPASE 152 U/L (73-393); POTASSIUM SERUM 4.4 MEQ/L (3.5-5.1); SODIUM LEVEL 140 MEQ/L (136-145); TOTAL PROTEIN 7.2 GM/DL (6.4-8.2)
== END ==
LOC: M RAD 09:33
PROVIDERS: ATTEND Physician Assistant
DX: R10.9 Unspecified abdominal pain (principal)
CPT/HCPCS: 36415; 74177; 80053; 83690; 85025; Q9963; Q9967

== ENCOUNTER → 2022-02-13 | Outpatient (CLI) | payer MEDICARE, BC, OTHER ==
[~2022-02-13] MED LIST changes: -GASTROGRAFIN SOLUTION 30ML (Q9963) As Ordered ONE; -ISOVUE-370 76% 100ML VIAL As Ordered ONE
== END ==
LOC: M PLAIMG 14:15
PROVIDERS: ATTEND Physician Assistant
DX: R91.1 Solitary pulmonary nodule (principal)

== ENCOUNTER → 2022-02-24 | Outpatient (CLI) | payer OTHER, MEDICARE, BC | LOC: M LABSMTC 10:00 | PROVIDERS: ATTEND Anesthesiology | DX: Z20.822 Contact with and (suspected) exposure to COVID-19 (principal) ==

== ENCOUNTER → 2022-02-27 | Outpatient (CLI) | payer OTHER, MEDICARE, BC ==
[~2022-02-27] MED LIST changes: +FLOM0.4C39 PO; +ISOVUE-M 300 61% 15ML VIAL As Ordered ONE; +LIDOCAINE 1% SDV 30ML VIAL As Ordered ONE; +NEUR300C PO; +NOXI1TAB PO; +TRAZ-252 PO; +diazePAM 5MG TABLET As Ordered ONE; +methylPREDNISolone SUSP 40MG/ML 1ML VIAL (DEPO MEDROL) As Ordered ONE; +oxyCODONE 5MG TAB As Ordered ONE
[2022-02-27 10:26] VITALS: BP 170/96
== END ==
LOC: M IRPRO 08:18
PROVIDERS: ATTEND Anesthesiology
DX: M96.1 Postlaminectomy syndrome, not elsewhere classified (principal); G47.30 Sleep apnea, unspecified; I10 Essential (primary) hypertension; I25.10 Atherosclerotic heart disease of native coronary artery without angina pectoris; K21.9 Gastro-esophageal reflux disease without esophagitis
CPT/HCPCS: 62323; J1030; Q9967

== ENCOUNTER → 2022-07-06 | Outpatient (CLI) | payer OTHER ==
[~2022-07-06] MED LIST changes: -ISOVUE-M 300 61% 15ML VIAL As Ordered ONE; -LIDOCAINE 1% SDV 30ML VIAL As Ordered ONE; -diazePAM 5MG TABLET As Ordered ONE; -methylPREDNISolone SUSP 40MG/ML 1ML VIAL (DEPO MEDROL) As Ordered ONE; -oxyCODONE 5MG TAB As Ordered ONE
== END ==
LOC: M PAIN 09:45
PROVIDERS: ATTEND Nurse Practitioner Family
DX: G89.29 Other chronic pain (principal); M96.1 Postlaminectomy syndrome, not elsewhere classified; K21.9 Gastro-esophageal reflux disease without esophagitis; I51.9 Heart disease, unspecified; I25.2 Old myocardial infarction; R21 Rash and other nonspecific skin eruption; Z87.891 Personal history of nicotine dependence; Z87.440 Personal history of urinary (tract) infections; Z79.82 Long term (current) use of aspirin; Z79.891 Long term (current) use of opiate analgesic

== ENCOUNTER → 2022-09-17 | Outpatient (CLI) | payer OTHER | LOC: M LABSMTC 10:37 | PROVIDERS: ATTEND Anesthesiology | DX: Z01.812 Encounter for preprocedural laboratory examination (principal); Z11.52 Encounter for screening for COVID-19 ==

== ENCOUNTER → 2022-09-20 | Outpatient (CLI) | payer OTHER ==
[~2022-09-20] MED LIST changes: +ISOVUE-M 300 61% 15ML VIAL As Ordered ONE; +LIDOCAINE 1% SDV 30ML VIAL As Ordered ONE; +NORCO, ANEXSIA 5/325MG TABLET (HYDROcodone/ACETAMINOPHEN) As Ordered ONE; +diazePAM 2 MG TAB As Ordered ONE; +methylPREDNISolone SUSP 40MG/ML 1ML VIAL (DEPO MEDROL) As Ordered ONE
== END ==
LOC: M PAIN 11:00
PROVIDERS: ATTEND Anesthesiology
DX: M96.1 Postlaminectomy syndrome, not elsewhere classified (principal); K21.9 Gastro-esophageal reflux disease without esophagitis; I25.2 Old myocardial infarction; Z87.891 Personal history of nicotine dependence; Z79.82 Long term (current) use of aspirin; Z79.891 Long term (current) use of opiate analgesic; Z79.899 Other long term (current) drug therapy; Z95.5 Presence of coronary angioplasty implant and graft
CPT/HCPCS: 62323; J1030

== ENCOUNTER → 2023-02-19 | Outpatient (CLI) | payer OTHER ==
[~2023-02-19] MED LIST changes: -ISOVUE-M 300 61% 15ML VIAL As Ordered ONE; -LIDOCAINE 1% SDV 30ML VIAL As Ordered ONE; -NORCO, ANEXSIA 5/325MG TABLET (HYDROcodone/ACETAMINOPHEN) As Ordered ONE; -diazePAM 2 MG TAB As Ordered ONE; -methylPREDNISolone SUSP 40MG/ML 1ML VIAL (DEPO MEDROL) As Ordered ONE
[2023-02-19 13:11] LABS: ALBUMIN 3.4 G/DL (3.2-5.2); ALKALINE PHOSPHATASE 85 U/L (46-116); ALT/SGPT 39 U/L (7.0-40); AST/SGOT 28 U/L (<34); BILIRUBIN,TOTAL 0.4 MG/DL (0.3-1.2); BLOOD UREA NITROGEN 19 MG/DL (9-23); CALCIUM LEVEL 9.1 MG/DL (8.3-10.6); CARBON DIOXIDE LEVEL 25 MMOL/L (20-31); CHLORIDE LEVEL 105 MMOL/L (98-107); CHOLESTEROL LEVEL 147 MG/DL (<200); CHOLESTEROL RISK RATIO 2.66 (<5); CREATININE FOR GFR 0.86 MG/DL (0.70-1.30); GLOMERULAR FILTRATION RATE > 60.0 (>49); GLUCOSE, FASTING 100 MG/DL (74-106); HDL CHOLESTEROL 55.1 MG/DL (>40); LDL CHOLESTEROL 76.1 MG/DL (<100); NON-HDL-C 91.9 MG/DL; POTASSIUM SERUM 4.6 MMOL/L (3.5-5.1); SODIUM LEVEL 140 MMOL/L (136-145); THYROID STIMULATING HORMONE 2.134 uIU/ML (0.55-4.78); TOTAL PROTEIN 6.4 G/DL (5.7-8.2); TRIGLYCERIDES LEVEL 79 MG/DL (<150)
[2023-02-19 13:12] LABS: HEMATOCRIT 46.5 % (42.0-52.0); HEMOGLOBIN 14.7 g/dl (13.5-17.5); MEAN CORPUSCULAR HEMOGLOBIN 28.5 pg (27.0-33.0); MEAN CORPUSCULAR HGB CONC 31.6 g/dl (32.0-36.5); MEAN CORPUSCULAR VOLUME 90.1 fl (80.0-96.0); PLATELET COUNT, AUTOMATED 200 10^3/uL (150-450); RED BLOOD COUNT 5.16 10^6/uL (4.30-6.10); WHITE BLOOD COUNT 6.5 10^3/uL (4.0-10.0)
== END ==
LOC: M LABDRWAD 08:22
PROVIDERS: ATTEND Physician Assistant
DX: R06.00 Dyspnea, unspecified (principal); E66.01 Morbid (severe) obesity due to excess calories; E78.5 Hyperlipidemia, unspecified

== ENCOUNTER → 2023-04-10 | Outpatient (CLI) | payer MEDICARE, BC, OTHER | LOC: M RAD 09:47 | PROVIDERS: ATTEND Physician Assistant | DX: R91.1 Solitary pulmonary nodule (principal) ==

== ENCOUNTER 2025-02-22 06:40 | Day surgery (SDC) | payer MEDICARE, BC ==
[~2025-02-22] VITALS: Ht 177.8 cm; Wt 177.4 kg
[~2025-02-22 06:40] MED LIST changes: +BUSP5TA PO; +DOXY-441 PO; -DOXY-443 PO; +ECOT81TA5 PO; -FLOM0.4C39 PO; +SEMA2.4P; +TAMS-18 PO; +TRAZ-257 PO; +TREL1AER; +VITA100093 PO
[2025-02-22] MEDS ORDERED: propofoL 200 MG/20 ML VIAL As Ordered ONE (07:01)
[2025-02-22] MEDS ORDERED: LIDOCAINE 2% INJ 100 MG/5 ML SYRINGE As Ordered ONE (07:01)
[2025-02-22 07:52] VITALS: TEMP 97.5
[2025-02-22 08:11] VITALS: BP 110/59; O2SAT 94
== END 2025-02-22 08:18 | disposition home or self-care (01) ==
LOC: M OPP 06:40
PROVIDERS: ATTEND Internal Medicine Gastroenterology
DX: Z12.11 Encounter for screening for malignant neoplasm of colon (principal); K57.30 Diverticulosis of large intestine without perforation or abscess without bleeding; K64.0 First degree hemorrhoids; Z86.0100 Personal history of colon polyps, unspecified; G47.30 Sleep apnea, unspecified; Z95.5 Presence of coronary angioplasty implant and graft; Z79.891 Long term (current) use of opiate analgesic; Z79.85 Long-term (current) use of injectable non-insulin antidiabetic drugs; Z79.899 Other long term (current) drug therapy; Z87.891 Personal history of nicotine dependence